=== PATIENT | male | born 1990 | race American Indian/Alaskan Native ===

== ENCOUNTER 2018-11-13 18:54 | Emergency (ER) | payer SELFPAY ==
--- NOTE | 2018-11-13 19:17 | Event Note ---
ED Screening Note ED Screening Note: pt states he has had a right evangelical MARKS for a week states he has not taken anything at all no vision changes, no numbness, no weakness no N/V states also buttock skin is dry, states used vasoline This initial assessment/diagnostic orders/clinical plan/treatment(s) is/are subject to change based on patients health status, clinical progression and re- assessment by fellow clinical providers in the ED. Further treatment and workup at subsequent clinical providers discretion. Patient/guardian urged not to elope from the ED as their condition may be serious if not clinically assessed and managed.
[2018-11-13] MEDS ORDERED: FIORICET PO ONE (19:57)
[2018-11-13] MEDS ORDERED: BENADRYL PO ONE (19:57)
[2018-11-13] MEDS ORDERED: TORADOL IM ONE (19:57)
--- NOTE | 2018-11-13 21:11 | Emergency Department Report ---
ED Headache HPI - General Chief Complaint: Headache Stated Complaint: HEADACHE/DRY SKIN ON BUTTOCKS Time Seen by Provider: 11/13/18 19:15 Source: patient Exam Limitations: no limitations - History of Present Illness Initial Comments: Patient is a 28-year-old -[place] male with a history of chronic migraine headaches who presents to the ED with complaint of acute exacerbation of his chronic migraine headaches for the last 1 week with lightheadedness. Patient also complains of painful swollen erythematous maculopapular rash on the left gluteal cleft for over 2 months. Patient states that he has been taking [id number] medications with no relief. She denies fever, chills, nausea, vomiting, dizziness, chest pain, shortness of breath, change in vision, neck p ain, back pain or abdominal pain. Timing/Duration: 1 week Quality: severe, constant, throbbing Head Injury Location: global Recent Head Trauma: no recent headache/trauma Associated Symptoms: denies symptoms. denies: confusion, facial pain, fever/chills, flushing, loss of consciousness, nausea/vomiting, nasal congestion, nasal drainage, numbness in legs/feet, seizures, stiff neck Allergies/Adverse Reactions: Allergies No Known Allergies Allergy (Verified 03/21/18 00:26) Home Medications: Ambulatory Orders Amlodipine Besylate [Norvasc] 2.5 mg PO DAILY #30 tablet 02/09/18 Ibuprofen [Motrin] 600 mg PO Q8H PRN #20 tablet 02/09/18 Butalb/Acetamin/Caff 50-325-40 [Fioricet 50-325-40] 1 - 2 tab PO Q6HR PRN #15 tab 11/13/18 Ketorolac [Toradol] 10 mg PO Q8H PRN #20 tablet 11/13/18 Ondansetron [Zofran Odt] 4 mg PO Q6HR PRN #15 tab.rapdis 11/13/18 Sulfamethoxazole/Trimethoprim [Bactrim DS TAB] 1 each PO Q12H #20 tablet 11/13/18 ED Review of Systems ROS: Stated complaint: HEADACHE/DRY SKIN ON BUTTOCKS Other details as noted in HPI Constitutional: denies: chills, fever Eyes: denies: eye pain, eye discharge, vision change ENT: denies: ear pain, throat pain Respiratory: denies: cough, shortness of breath, wheezing Cardiovascular: denies: chest pain, palpitations Endocrine: no symptoms reported Gastrointestinal: denies: abdominal pain, nausea, diarrhea Genitourinary: denies: urgency, dysuria Musculoskeletal: denies: back pain, joint swelling, arthralgia Skin: rash (erythematous maculopapular painful rash on the gluteal cleft), change in color (erythematous), pruritus. denies: lesions Neurological: headache. denies: weakness, numbness, paresthesias, confusion, abnormal gait, vertigo Psychiatric: denies: anxiety, depression Hematological/Lymphatic: denies: easy bleeding, easy bruising ED Past Medical Hx - Past Medical History Previous Medical History?: No - Surgical History Past Surgical History?: No - Social History Smoking Status: Never Smoker Substance Use Type: Marijuana - Medications Home Medications: Home Medications Medication Instructions Recorded Confirmed Last Taken Type Amlodipine Besylate [Norvasc] 2.5 mg PO DAILY #30 tablet 02/09/18 Unknown Rx Ibuprofen [Motrin] 600 mg PO Q8H PRN #20 tablet 02/09/18 Unknown Rx Butalb/Acetamin/Caff 50-325-40 1 - 2 tab PO Q6HR PRN #15 tab 11/13/18 Unknown Rx [Fioricet 50-325-40] Ketorolac [Toradol] 10 mg PO Q8H PRN #20 tablet 11/13/18 Unknown Rx Ondansetron [Zofran Odt] 4 mg PO Q6HR PRN #15 tab.rapdis 11/13/18 Unknown Rx Sulfamethoxazole/Trimethoprim 1 each PO Q12H #20 tablet 11/13/18 Unknown Rx [Bactrim DS TAB] ED Physical Exam - General Limitations: No Limitations General appearance: alert, in no apparent distress - Head Head exam: Present: atraumatic, normocephalic, normal inspection - Eye Eye exam: Present: normal appearance, PERRL, EOMI. Absent: scleral icterus, conjunctival injection, nystagmus Pupils: Present: normal accommodation - ENT ENT exam: Present: normal exam, normal orophraynx, mucous membranes moist, TM's normal bilaterally, normal external ear exam - Neck Neck exam: Present: normal inspection, full ROM - Respiratory Respiratory exam: Present: normal lung sounds bilaterally. Absent: respiratory distress, wheezes, rhonchi, stridor, chest wall tenderness, accessory muscle use, decreased breath sounds - Cardiovascular Cardiovascular Exam: Present: regular rate, normal rhythm, normal heart sounds. Absent: systolic murmur, diastolic murmur, rubs, gallop - GI/Abdominal GI/Abdominal exam: Present: soft, normal bowel sounds. Absent: distended, guarding, rebound, hyperactive bowel sounds - Rectal Rectal exam: Present: deferred - Extremities Exam Extremities exam: Present: normal inspection, full ROM, normal capillary refill - Back Exam Back exam: Present: normal inspection, full ROM. Absent: tenderness, CVA tenderness (R), CVA tenderness (L), muscle spasm, paraspinal tenderness, vertebral tenderness - Neurological Exam Neurological exam: Present: alert, oriented X3, CN II-XII intact, normal gait, reflexes normal - Psychiatric Psychiatric exam: Present: normal affect, normal mood - Skin Skin exam: Present: warm, dry, intact, normal color, rash (erythematous moderately tender rash on gluteal cleft) ED Course - Reevaluation(s) Reevaluation #1: 11/13/18 21:09 This is a 28-year-old male who presented to the ED with persistent severe diffuse headache with lightheadedness and a painful rash in the gluteal cleft for the last 1 week. In the ED, patient is alert and oriented 3 and is in distress with normal vital signs. Patient was treated for pain in the ED and on reevaluation, patient's headache has significantly improved and resolved. Patient is discharged home on medications and advised follow-up with his primary care physician in 7-10 days for reevaluation. Patient was also advised to return to the ED immediately if symptoms get worse. 11/13/18 21:29 ED Medical Decision Making - Medical Decision Making This is a 28-year-old male who presented to the ED with persistent severe diffuse headache with lightheadedness for the last 1 week. In the ED, patient is alert and oriented 3 and is in distress with normal vital signs. Patient was treated for pain in the ED and on reevaluation, patient's headache has sig nificantly improved and resolved. Patient is discharged home on medications and advised follow-up with his primary care physician in 7-10 days for reevaluation. Patient was also advised to return to the ED immediately if symptoms get worse. - Differential Diagnosis Chronic headache; lightheadedness; cellulitis of gluteus Critical care attestation.: If time is entered above; I have spent that time in minutes in the direct care of this critically ill patient, excluding procedure time. ED Disposition Clinical Impression: Cellulitis and abscess of buttock Headache, chronic migraine without aura Qualifiers: Status migrainosus presence: without status migrainosus Intractability: not intractable Qualified Code(s): G43.709 - Chronic migraine without aura, not intractable, without status migrainosus Disposition: DC- TO HOME OR SELFCARE Is pt being admited?: No Does the pt Need Aspirin: No Condition: Undetermined Instructions: Migraine Headache (ED) Additional Instructions: Take medications and food, drink plenty of fluids and follow-up with your primary care physician in 7-10 days for reevaluation. Return to the ED immediately if symptoms get worse. Prescriptions: Sulfamethoxazole/Trimethoprim [Bactrim DS TAB] 1 each PO Q12H #20 tablet Butalb/Acetamin/Caff 50-325-40 [Fioricet 50-325-40] 1 - 2 tab PO Q6HR PRN #15 tab PRN Reason: Headache Ketorolac [Toradol] 10 mg PO Q8H PRN #20 tablet PRN Reason: Pain Ondansetron [Zofran Odt] 4 mg PO Q6HR PRN #15 tab.rapdis PRN Reason: Nausea Referrals: [facility] [Outside] - 3-5 Days Time of Disposition: 21:10 Print Language: KAZAKH
== END 2018-11-13 21:44 | disposition home or self-care (01) ==
LOC: ED 18:54
DX: G43.709 Chronic migraine without aura, not intractable, without status migrainosus (principal); L02.31 Cutaneous abscess of buttock; F12.10 Cannabis abuse, uncomplicated
CPT/HCPCS: 96372; 99282; J1885

== ENCOUNTER 2019-02-01 06:54 | Emergency (ER) | payer SELFPAY ==
[2019-02-01 07:14] VITALS: BP 133/79
--- NOTE | 2019-02-01 07:32 | Emergency Department Report ---
ED Laceration HPI - HPI Chief Complaint: Wound/Laceration Stated Complaint: LACERATION TO TOP OF RIGHT THUMB Time Seen by Provider: 02/01/19 07:22 Occurred When: Before Yesterday Location: Upper Extremity Severity: mild Tetanus Status: Not up to Date Laceration Symptoms: Yes Pain, No Foreign Body Sensation, No Numbness, No Weakness Other History: Since a 28-year-old -[place] male who presents to the emergency room with a laceration to right proximal first finger. Patient states he cut his finger while washing dishes at work a day and a half ago. Patient states he's cleaning wound with soap and water. States it started to close but he noticed some swelling to the flap wound and every time he popped his finger it starts to drain. He denies numbness or tingling, weakness, fever, chills, or redness. ED Review of Systems ROS: Stated complaint: LACERATION TO TOP OF RIGHT THUMB Other details as noted in HPI Constitutional: denies: chills, fever Respiratory: denies: cough, shortness of breath, wheezing Cardiovascular: denies: chest pain, palpitations Gastrointestinal: denies: abdominal pain, nausea, diarrhea Skin: lesions (laceration to right first finger). denies: rash Neurological: denies: headache, weakness, paresthesias Psychiatric: denies: anxiety, depression ED Past Medical Hx - Past Medical History Previous Medical History?: No - Surgical History Past Surgical History?: No - Social History Smoking Status: Never Smoker Substance Use Type: None - Medications Home Medications: Home Medications Medication Instructions Recorded Confirmed Last Taken Type Amlodipine Besylate [Norvasc] 2.5 mg PO DAILY #30 tablet 02/09/18 Unknown Rx Ibuprofen [Motrin] 600 mg PO Q8H PRN #20 tablet 02/09/18 Unknown Rx Butalb/Acetamin/Caff 50-325-40 1 - 2 tab PO Q6HR PRN #15 tab 11/13/18 Unknown Rx [Fioricet 50-325-40] Ketorolac [Toradol] 10 mg PO Q8H PRN #20 tablet 11/13/18 Unknown Rx Ondansetron [Zofran Odt] 4 mg PO Q6HR PRN #15 tab.rapdis 11/13/18 Unknown Rx Sulfamethoxazole/Trimethoprim 1 each PO Q12H #20 tablet 11/13/18 Unknown Rx [Bactrim DS TAB] Clindamycin [Clindamycin CAP] 300 mg PO Q8H #21 cap 02/01/19 Unknown Rx Laceration Physical Exam - Exam General: Vital signs noted. No distress. Alert and acting appropriately. Wound Length (cm): 1 Laceration Location: Upper Extremity (right proximal first finger) Full Body Front + Back: 1 - 1 cm linear laceration into the epidermis of right first proximal phalanx, flap swelling, serosanguineous drainage, well approximated edgeds, nontender, no visualized tendon, vessels, or surrounding cellulitis. FROM. Neurologic: Alert and oriented, no deficits. Strength 5/5 in all extremities. Sensation intact to light touch in 4 extremities. Laceration Exam: Yes Normal Distal CMS, No Foreign Body, No Exposed Tendon, Vess el, or Nerve, No Tendon Injury ED Course Vital Signs 02/01/19 07:12 Temperature 98.3 F Pulse Rate 82 Respiratory 16 Rate Blood Pressure 133/79 O2 Sat by Pulse 99 Oximetry ED Medical Decision Making - Medical Decision Making This is a 28 y.o. male presents with laceration to right first finger for 1-1/2 days. Patient examined by me. Patient is non-toxic appearing and stable. The flap of the wound is swollen, nontender, no surrounding cellulitis. However wound is beyond 24 hours closure time. Patient informed. Given Boostrix vaccine. Start clindamycin. Wound irrigated with normal saline and a sterile 4 x 4 gauze applied. Patient given care instructions for an acute wound. Discussed ER care plan with patient. Patient agreed with plan. Discharged home stable. F/U with PCP. Critical care attestation.: If time is entered above; I have spent that time in minutes in the direct care of this critically ill patient, excluding procedure time. ED Disposition Clinical Impression: Laceration of finger Qualifiers: Encounter type: initial encounter Finger: thumb Damage to nail status: without damage Foreign body presence: without foreign body Laterality: right Qualified Code(s): S61.011A - Laceration without foreign body of right thumb without damag e to nail, initial encounter Disposition: DC-01 TO HOME OR SELFCARE Is pt being admited?: No Condition: Stable Instructions: Laceration (ED), Acute Wound Care (ED) Additional Instructions: Take antibiotics as prescribed for the full course. Keep wound dry and clean. Follow up with Primary Care Provider in 2-3 days. Return to ER if red, swollen, foul discharge, or fever. Prescriptions: Clindamycin [Clindamycin CAP] 300 mg PO Q8H #21 cap [facility]: [facility] - 3-5 Days [facility] [Outside] - 3-5 Days [facility] [Outside] - 3-5 Days Forms: Work/School Release Form(ED) Time of Disposition: 07:38
[2019-02-01] MEDS ORDERED: TETANUS,DIPH,PERTUSS(ACELL) VACCINE 0.5 ML SYRINGE IM ONE ×2 (07:35→08:00)
== END 2019-02-01 08:05 | disposition home or self-care (01) ==
LOC: ED 06:54
DX: S61.011A Laceration without foreign body of right thumb without damage to nail, initial encounter (principal); Z79.899 Other long term (current) drug therapy; W26.8XXA Contact with other sharp object(s), not elsewhere classified, initial encounter; Y93.G1 Activity, food preparation and clean up; Y92.89 Other specified places as the place of occurrence of the external cause; Y99.8 Other external cause status
CPT/HCPCS: 90471; 90715